=== PATIENT | male | born 1990 | race Caucasian/White ===

== ENCOUNTER 2017-07-11 11:40 | Emergency (ER) | payer SELFPAY ==
[2017-07-11 11:45] VITALS: BP 132/70; PULSE 67; TEMP 98.6; BMI 30.9
--- NOTE | 2017-07-11 12:36 | PDOC ---
History of Present Illness - General Chief Complaint: Pain, Acute Stated Complaint: PAIN Time Seen by Provider: 07/11/17 12:09 History Source: Patient Exam Limitations: No Limitations - History of Present Illness Initial Comments: 07/11/17 12:35 CHIEF COMPLAINT: Flank pain HISTORY OF PRESENT ILLNESS: This is an otherwise healthy 27 year old male who presents for evaluation of two days of constant left flank pain. He denies trauma/heavy lifting. He denies dysuria/hematuria, fevers/chills, nausea/ vomiting, or any other symptoms. He reports that he had similar pain a few years ago but did not seek medical attention; the pain subsided on its own after several days. Vital signs on arrival are unremarkable. REVIEW OF SYSTEMS: GENERAL/CONSTITUTIONAL: No fever or chills. No weakness. No weight change. HEAD, EYES, EARS, NOSE AND THROAT: No change in vision. No ear pain or discharge. No sore throat. CARDIOVASCULAR: No chest pain or palpitations. RESPIRATORY: No cough, wheezing, or shortness of breath. GASTROINTESTINAL: No nausea, vomiting, diarrhea or constipation. GENITOURINARY: See HPI. MUSCULOSKELETAL: No joint or muscle swelling or pain. No neck or back pain. SKIN: No rash or easy bruising. NEUROLOGIC: No headache, vertigo, loss of consciousness, or loss of sensation. PSYCHIATRIC: No depression or anxiety. ENDOCRINE: No increased thirst. No abnormal weight change. HEMATOLOGIC/LYMPHATIC: No anemia, easy bleeding, or history of blood clots. ALLERGIC/IMMUNOLOGIC: No hives or skin allergy. No latex allergy. PHYSICAL EXAM: GENERAL: The patient is awake, alert, and fully oriented, in no acute distress. HEAD: Normal with no signs of trauma. ENT: Pupils equal, round and reactive to light, extraocular movements intact, sclera anicteric, conjunctiva clear. Neck supple. LUNGS: Clear to auscultation bilaterally. Normal excursion. No respiratory distress or use of accessory muscles. CV: RRR, S1/S2, no MRG. Cap refill < 2 sec. ABDOMEN: Soft, non-distended, non-tender, anteriorly, left CVA tenderness to gentle palpation. EXTREMITIES: Normal range of motion, no edema. NEUROLOGICAL: Normal speech, normal gait. CN II-XII grossly intact. PSYCH: Normal mood, normal affect. SKIN: Warm, dry, normal turgor, no rashes or lesions noted. Past History - Past Medical History Allergies/Adverse Reactions: Allergies Allergy/AdvReac Type Severity Reaction Status Date / Time No Known Allergies Allergy Verified 07/11/17 11:45 Home Medications: Ambulatory Orders NK [No Known Home Medication] 07/11/17 - Psycho/Social/Smoking Cessation Hx Suicidal Ideation: No Smoking History: Current every day smoker Number of Cigarettes Smoked Daily: 3 Information on smoking cessation initiated: No *Physical Exam - Vital Signs Last Vital Signs Temp Pulse Resp BP Pulse Ox 98.6 F 67 18 132/70 99 07/11/17 11:42 07/11/17 11:42 07/11/17 11:42 07/11/17 11:42 07/11/17 11:42 ED Treatment Course - LABORATORY CBC & Chemistry Diagram: 07/11/17 12:55 07/11/17 12:55 Medical Decision Making - Medical Decision Making 07/11/17 13:48 A/P: 27 year old male with flank pain. Differential includes UTI/pyelonephritis , renal colic, and musculoskeletal etiology. 1. UA, urine culture 2. Basic labs 3. CT spiral renal stone protocol 4. Toradol 30mg IVP for pain 07/11/17 13:58 UA negative. Labs unremarkable. CT: no renal stones or other abnormalities. Feeling better after Toradol. Will dc with PCP followup. Return precautions reviewed. *DC/Admit/Observation/Transfer Diagnosis at time of Disposition: Flank pain - Discharge Dispostion Disposition: HOME Condition at time of disposition: Stable Admit: No - Referrals Referrals: Anita Rodriguez MD [Staff Physician] - Call tomorrow (For primary care) - Patient Instructions Printed Discharge Instructions: DI for Flank Pain Additional Instructions: -Take ibuprofen as prescribed for pain -Call Dr. Rodriguez for an appointment -Return here for worsening pain, fever, or any other concerning symptoms
[2017-07-11] MEDS ORDERED: KETOROLAC TROMETHAMINE 30 MG/1 ML VIAL IVPUSH ONE (12:40)
[2017-07-11] MEDS ORDERED: KETOROLAC TROMETHAMINE 30 MG/1 ML VIAL ONE (13:02)
[2017-07-11 13:13] LABS: URINE APPEARANCE CLEAR; URINE BILIRUBIN NEGATIVE (NEGATIVE); URINE BLOOD NEGATIVE (NEGATIVE); URINE COLOR LTYELLOW; URINE GLUCOSE (UA) NEGATIVE (NEGATIVE); URINE KETONE NEGATIVE (NEGATIVE); URINE LEUK ESTERASE NEGATIVE (NEGATIVE); URINE NITRITE NEGATIVE (NEGATIVE); URINE PROTEIN NEGATIVE (NEGATIVE); URINE UROBILINOGEN NEGATIVE mg/dL (0.2-1.0)
[2017-07-11 13:15] LABS: BASOPHIL 0.5 % (0-2.0); EOSINOPHIL 2.8 % (0-4.5); MCH 29.7 pg (25.7-33.7); MCHC 33.7 g/dl (32.0-35.9); MEAN CELL VOLUME 88.2 fl (80-96); MEAN PLT VOLUME 8.5 fl (7.5-11.1); NEUTROPHILS 58.2 % (42.8-82.8); PLATELET COUNT 257 K/MM3 (134-434); RDW 12.8 % (11.9-15.9)
[2017-07-11 13:30] LABS: ALBUMIN 4.2 g/dl (3.4-5.0); ANION GAP 10 (8-16); BILIRUBIN,TOTAL 0.5 mg/dL (0.2-1.0); CALCIUM 9.3 mg/dL (8.5-10.1); CO2 24 mmol/L (21-32); CREATININE 0.6 mg/dL (0.7-1.3); GLUCOSE,RANDOM 92 mg/dL (74-106); SGOT/AST 19 U/L (15-37); SGPT/ALT 44 U/L (12-78); TOT PROT 7.9 g/dl (6.4-8.2)
[2017-07-11 13:31] LABS: ALK PHOS 114 U/L (45-117)
== END 2017-07-11 14:52 | disposition home or self-care (01) ==
LOC: JER 11:40
PROC: 3E0333Z Introduction of Anti-inflammatory into Peripheral Vein, Percutaneous Approach (ICD-10-PCS; principal; 2017-07-11)
DX: R10.32 Left lower quadrant pain (principal); F17.210 Nicotine dependence, cigarettes, uncomplicated
CPT/HCPCS: 36415; 74176; 80053; 81003; 85025; 87086; 99284-25

== ENCOUNTER 2024-04-24 17:08 | Emergency (ER) | payer SELFPAY ==
[2024-04-24 17:13] VITALS: BP 102/64; PULSE 81; RESP 20; TEMP 97.6; BMI 39.0
[2024-04-24] MEDS ORDERED: KETOROLAC TROMETHAMINE 30 MG/1 ML VIAL ONE (17:36)
[2024-04-24] MEDS: SODIUM CHLORIDE 0.9% 500 ML INFUS.BAG IV ONE (17:47)
[2024-04-24] MEDS: KETOROLAC TROMETHAMINE 30 MG/1 ML VIAL IVPUSH ONE (17:47)
[2024-04-24 17:53] LABS: BASO % 1.3 % (0-2.0); EOS % 1.4 % (0-4.5); HEMATOCRIT 42.5 % (35.4-49); HEMOGLOBIN 14.6 GM/dL (11.7-16.9); LYMPH % 20.1 % (8-40); MCHC 34.3 g/dl (32.0-35.9); MEAN CELL VOLUME 90.3 fl (80-96); MEAN PLT VOLUME 8.2 fl (7.5-11.1); MONO % 7.8 % (3.8-10.2); NEUT % 69.4 % (42.8-82.8); PLATELET COUNT 277 10^3/uL (134-434); RDW 13.2 % (11.9-15.9)
[2024-04-24 18:18] LABS: POTASSIUM 4.1 mmol/L (3.5-5.1)
[2024-04-24 18:20] LABS: ALBUMIN 4.3 g/dl (3.4-5.0); BLOOD UREA NITROGEN 12.6 mg/dL (7-18); CALCIUM 9.1 mg/dL (8.5-10.1)
[2024-04-24 18:23] LABS: CREATININE 0.8 mg/dL (0.55-1.3)
[2024-04-24 18:25] LABS: BILIRUBIN,TOTAL 0.5 mg/dL (0.2-1); TOT PROT 7.8 g/dl (6.4-8.2)
[2024-04-24] MEDS ORDERED: AMPICILLIN NA/SULBACTAM NA 3 GM/100 ML BAG IVPB ONE (18:30)
[2024-04-24] MEDS: AMPICILLIN NA/SULBACTAM NA 3 GM in SODIUM CHLORIDE 100 ML IVPB ONE (18:32)
== END 2024-04-24 20:51 | disposition home or self-care (01) ==
LOC: JER 17:08
PROC: 3E03329 Introduction of Other Anti-infective into Peripheral Vein, Percutaneous Approach (ICD-10-PCS; principal; 2024-04-24)
PROC: 3E0333Z Introduction of Anti-inflammatory into Peripheral Vein, Percutaneous Approach (ICD-10-PCS; 2024-04-24)
DX: L03.113 Cellulitis of right upper limb (principal)
CPT/HCPCS: 36415; 73130-TC-RT-FY; 80053; 85025; 99284-25